=== PATIENT | male | born 1940 | race Caucasian/White ===

== ENCOUNTER → 2024-07-13 | Emergency (ER) | payer MEDICARE, OTHER ==
[~2024-07-13] VITALS: Ht 172.7 cm; Wt 78.2 kg
[~2024-07-13] MED LIST: ASPI-1450 PO; EMPA10TA3 PO; EZET10TA57 PO; INSNOV SQ; METF-1211 PO; RANO500T27 PO; ROSU20TA98 PO; SPIR-37 PO
[2024-07-13 15:06] VITALS: BP 120/65; PULSE 92; RESP 20; TEMP 98.6; O2SAT 98
[2024-07-13] MEDS: ACETAMINOPHEN 325 MG TABLET PO ONE (16:34)
== END | disposition still patient (30) ==
LOC: EMS 14:24
DX: S80.12XA Contusion of left lower leg, initial encounter (principal); S10.93XA Contusion of unspecified part of neck, initial encounter; S09.90XA Unspecified injury of head, initial encounter; E11.9 Type 2 diabetes mellitus without complications; I11.0 Hypertensive heart disease with heart failure; I50.9 Heart failure, unspecified; J84.10 Pulmonary fibrosis, unspecified; Z79.82 Long term (current) use of aspirin; Z95.0 Presence of cardiac pacemaker; Z79.899 Other long term (current) drug therapy; Y04.8XXA Assault by other bodily force, initial encounter; Y93.89 Activity, other specified; Y92.89 Other specified places as the place of occurrence of the external cause; Y99.8 Other external cause status
CPT/HCPCS: 70450; 72125; 82962; 99284